=== PATIENT | female | born 1940 | race Caucasian/White ===

== ENCOUNTER 2017-01-25 18:58 | Outpatient (CLI) | payer MEDICARE, OTHER ==
--- NOTE | 2017-01-25 21:07 | Ultrasound Preliminary Report ---
Exam: US Retroperitoneal Limited IMPRESSION: Slightly increased size of large mid to distal abdominal aortic aneurysm. RADIA The call report notification system was initiated by Dr. Kiko Maher at 20:54 hrs on 01/25/17. The above findings were discussed with Dr Joni Ayala by Dr. Kiko Maher at 21:06 hrs on 01/25/17. SITE ID: [id number]
--- NOTE | 2017-01-25 21:10 | Ultrasound Report ---
EXAM: AORTIC DOPPLER ULTRASOUND EXAM DATE: 01/25/2017 08:03 PM. CLINICAL HISTORY: AAA BACK PAIN. COMPARISON: CT scan dated 05/23/2015. TECHNIQUE: Real-time sonographic imaging of retroperitoneal vascular structures, including color-flow , Doppler flow and spectral analysis was performed by the document processor. Multiple front desk representative static images were saved for review. FINDINGS: Aorta: Fusiform infrarenal mid to distal abdominal aortic aneurysm again noted with maximum measureme nt of 5.2 x 5.5 cm and extending over 7.6 cm in length, with asymmetric mural thrombus. This has incr eased from about 4.9 cm in diameter in previous CT scan. Proximal aorta: 2.6 cm. Mid aorta: 3.2 x 3.8 cm. Distal aorta: 5.2 x 5.5 cm. Right iliac artery: 1.4 x 1.4 cm. Left iliac artery: 1.2 x 1.2 cm. Other: None. IMPRESSION: Slightly increased size of large mid to distal abdominal aortic aneurysm. RADIA The call report notification system was initiated by Dr. Kiko Maher at 20:54 hrs on 01/25/17. The above findings were discussed with Dr Joni Ayala by Dr. Kiko Maher at 21:06 hrs on 01/25/17. Referring Provider Line: [phone] SITE ID: [id number]
== END 2017-01-25 18:59 | disposition home or self-care (01) ==
LOC: DI 18:58
PROVIDERS: ATTEND Specialist
DX: I71.4 Abdominal aortic aneurysm, without rupture (principal)
CPT/HCPCS: 76775

== ENCOUNTER 2017-06-29 11:01 | Outpatient (CLI) | payer MEDICARE, OTHER ==
[2017-06-29 11:39] LABS: BASOPHILS % (AUTO) 0.3 %; EOSINOPHILS # (AUTO) 0.1 10^3/uL (0.0-0.7); EOSINOPHILS % (AUTO) 1.8 %; HGB - HEMOGLOBIN 15.3 g/dL (12.0-16.0); LYMPHOCYTES # (AUTO) 2.7 10^3/uL (1.5-3.5); LYMPHOCYTES % (AUTO) 38.5 %; MEAN CORPUSCULAR HEMOGLOBIN 31.9 pg (27.0-31.0); MEAN CORPUSCULAR HGB CONC 33.9 g/dL (32.0-36.0); MEAN CORPUSCULAR VOLUME 94.2 fL (81.0-99.0); MEAN PLATELET VOLUME 9.3 fL (7.9-10.8); MONOCYTES # (AUTO) 0.6 10^3/uL (0.0-1.0); MONOCYTES % (AUTO) 8.6 %; NEUTROPHILS # (AUTO) 3.5 10^3/uL (1.5-6.6); NEUTROPHILS % (AUTO) 50.8 %; PLT - PLATELET COUNT 178 10^3/uL (130-450); RED CELL DISTRIBUTION WIDTH 14.6 % (12.0-15.0)
[2017-06-29] MEDS ORDERED: IOPAMIDOL-300 50 ML VIAL ONE (11:55)
[2017-06-29] MEDS ORDERED: IOPAMIDOL-300 100 ML VIAL ONE (11:55)
[2017-06-29 13:29] LABS: CREATININE 0.8 mg/dL (0.4-1.0)
[2017-06-29] MEDS ORDERED: IOPAMIDOL-300 50 ML VIAL PO ONE (13:54)
[2017-06-29] MEDS ORDERED: IOPAMIDOL-300 100 ML VIAL IVP ONE (13:54)
--- NOTE | 2017-06-29 18:07 | CT Report ---
CT ABDOMEN AND PELVIS WITH CONTRAST: 06/29/2017 CLINICAL INDICATION: Diarrhea, change in bowel habits, foreign body in duodenal diverticulum noted on outside CT 02/20/2017. TECHNIQUE: Axial CT images of the abdomen and pelvis were obtained with 100 mL Isovue 300 intravenously as well as oral contrast. In accordance with CT protocol optimization, one or more of the following dose reduction techniques were utilized for this exam: Automated exposure control, adjustment of mA and/or KV based on patient size, or use of iterative reconstructive technique. COMPARISON: 05/23/2015. The location of the previous outside CT of 02/20/2017 referenced on the order is unknown and it is not available for comparison at this time. FINDINGS: Limited evaluation of the lung bases is unremarkable. ABDOMEN: The liver, spleen, pancreas and adrenal glands are unremarkable. The kidneys demonstrate cortical cysts, left greater than right. The patient is status post cholecystectomy. A duodenal diverticulum is noted. No foreign body is identified within the diverticulum. The diverticulum does abut the cholecystectomy clips, but the clips are external to the diverticulum. Previous aortobiiliac stent grafting is noted. No enhancement of the excluded aneurysm lumen is appreciated on this single phase examination. No bowel dilatation, free gas, or free fluid is seen. No abdominal adenopathy is appreciated. PELVIS: The pelvic organs appear unremarkable. No pelvic adenopathy or free fluid is present. Osseous structures demonstrate degenerative changes. IMPRESSION: NO EVIDENT ETIOLOGY FOR PATIENT'S DIARRHEA AND CHANGE IN BOWEL HABITS. NO FOREIGN BODY VISUALIZED IN THE DUODENAL DIVERTICULUM. PREVIOUS AORTOBIILIAC STENT GRAFTING. TD: 06/29/2017 18:06
[2017-07-03 16:42] LABS: ENDOMYSIAL ANTIBODY SCR IGA NEGATIVE (NEGATIVE); GLIADIN (DEAMIDATED) AB IGA 13 U (<20); GLIADIN (DEAMIDATED) AB IGG 3 U (<20); IMMUNOGLOBULIN A 362 mg/dL (81-463); TISSUE TRANSGLUTAMINASE IGA <1 U/mL; TISSUE TRANSGLUTAMINASE IGG 2 U/mL
== END 2017-06-29 11:02 | disposition home or self-care (01) ==
LOC: LAB 11:01 → DI 11:02
PROVIDERS: ATTEND Nurse Anesthetist, Certified Registered
DX: R19.7 Diarrhea, unspecified (principal); R19.4 Change in bowel habit; K59.09 Other constipation
CPT/HCPCS: 36415; 74177; 82565; 82784; 83516; 85025; 86256; Q9967

== ENCOUNTER 2017-09-22 10:31 | Outpatient (CLI) | payer MEDICARE, OTHER ==
--- NOTE | 2017-09-24 14:31 | DEXA Report ---
DEXA SCAN: 09/22/2017 CLINICAL INDICATION: Postmenopausal. TECHNIQUE: Dual energy x-ray absorptiometry (DXA) was performed on a [employer] system. Regions measured are the AP spine, femoral neck, and, if needed, forearm. COMPARISON: None. In accordance with the International Society for Clinical Densitometry (ISCD) guidelines, data from previous exams may be reanalyzed using current recommendations and techniques. This is done to allow a more accurate basis for comparison with the current study. FINDINGS Data for the lumbar spine is as follows: N/A Data for the RIGHT hip is as follows: REGION BMD (g/cm/cm) T-SCORE Z-SCORE Neck 0.795 -1.7 -0.1 TOTAL 0.921 -0.7 0.8 NOTE: The femoral neck or total proximal femur, whichever is lowest, is used for classification. The data for the LEFT forearm is as follows: REGION BMD (g/cm/cm) T-SCORE Z-SCORE 1/3 0.847 -0.3 2.1 NOTE: The 33% radius of the nondominant forearm is used for classification. IMPRESSION 1. WHO CLASSIFICATION BASED ON THE INTERNATIONAL REFERENCE STANDARD IS OSTEOPENIA. FRACTURE RISK IS INCREASED. 2. LUMBAR SPINE NOT PERFORMED DUE TO AORTIC STENT GRAFT IN PLACE; LEFT HIP NOT PERFORMED DUE TO HISTORY OF FRACTURE. RECOMMENDATION: Patients with diagnosis of osteoporosis or osteopenia should have regular bone mineral density assessment. For those eligible for Medicare, routine testing is allowed once every 2 years. Testing frequency can be increased for patients who have rapidly progressing disease or for those who are receiving medical therapy to restore bone mass. COMMENT World Health Organization (WHO) definitions for osteoporosis and osteopenia: NORMAL BMD: T-score at 1.0 or higher, fracture risk is low. OSTEOPENIA BMD: T-score between 1.0 and -2.5, fracture risk is increased. OSTEOPOROSIS BMD: T-score at 2.5 or lower, fracture risk high. National Osteoporosis Foundation recommends: 1. Obtain adequate dietary calcium (at least 1200 mg per day) and vitamin D ( 400-800 international units per day). 2. Participate, as appropriate, in regular weightbearing and muscle- strengthening exercise. 3. Avoid tobacco use and reduce alcohol and caffeine intake. 4. For more detailed information see the website at www.NOF.org. REVISED: REPORT ORIG. SIGNED ON 09/25/2017@0420; ORDERS LINKED ON 11/06/2017 jll TD: 09/22/2017 13:10 MTDD
== END 2017-09-22 10:32 | disposition home or self-care (01) ==
LOC: DI 10:31
PROVIDERS: ATTEND Specialist
DX: Z13.820 Encounter for screening for osteoporosis (principal); Z78.0 Asymptomatic menopausal state; M85.89 Other specified disorders of bone density and structure, multiple sites
CPT/HCPCS: 77080; 77081

== ENCOUNTER 2017-09-22 10:32 | Outpatient (CLI) | payer MEDICARE, OTHER ==
--- NOTE | 2017-09-25 18:13 | Mammography Report ---
BILATERAL DIGITAL SCREENING MAMMOGRAPHY: 09/22/2017 TECHNIQUE: Routine CC and MLO projections were obtained of the breasts. COMPARISONS: NONE FINDINGS: There are scattered fibroglandular densities. There are focal areas of asymmetry bilaterally, on the right in the anterior upper outer quadrant and on the left in the 12 o'clock position, mid and posterior thirds. Further evaluation by spot compression and true lateral views suggested. Depending on these, ultrasound may be useful. Scattered calcifications are seen in each breast. The more anterior asymmetric density seen in the left breast may have associated microcalcifications. No definite architectural distortion or skin thickening in either breast. IMPRESSION: NEEDS ADDITIONAL EVALUATION BILATERAL BREASTS BY SPOT COMPRESSION AND/OR MAGNIFICATION VIEWS. ULTRASOUND MAY ALSO BE INDICATED. BIRADS CATEGORY: 0, INCOMPLETE. IF PRIOR IMAGING CAN BE OBTAINED, THE NEED FOR ADDITIONAL IMAGING MAY BE OBVIATED. STANDARD QUALIFYING STATEMENTS 1. This examination was reviewed with the aid of Computed-Aided Detection (CAD) . 2. A negative or benign imaging report should not delay biopsy if clinically suspicious findings are present. Consider surgical consultation if warranted. More than 5 % of cancers are not identified by imaging. 3. Dense breasts may obscure an underlying neoplasm. TD: 09/25/2017 16:10 [place]
== END 2017-09-22 10:33 | disposition home or self-care (01) ==
LOC: DI 10:32
PROVIDERS: ATTEND Specialist
DX: Z12.31 Encounter for screening mammogram for malignant neoplasm of breast (principal)
CPT/HCPCS: 77067

== ENCOUNTER 2017-10-16 14:29 | Outpatient (CLI) | END 2017-10-16 14:30 | disposition home or self-care (01) ==

== ENCOUNTER 2017-10-30 10:23 | Outpatient (CLI) | payer MEDICARE, OTHER ==
[2017-10-30] MEDS ORDERED: BUFFERED LIDOCAINE 10 ML SYRINGE IU ONE (13:52)
[2017-10-30] MEDS ORDERED: BUPIVACAINE 0.5%-EPI 1:200000 PF 10 ML VIAL SUBQ ONE (13:52)
--- NOTE | 2017-10-30 14:15 | Ultrasound Report ---
Procedure Date: 10/30/2017 Accession Number: [id number] / [id number] Procedure: US - Biopsy Breast Core CPT Code: FULL RESULT: EXAM: Biopsy Breast Core, Biopsy Breast Ea Addl Core DATE: 10/30/2017 12:32 PM CLINICAL HISTORY: ABN MAMMO - LT BREAST NODULES Informed consent was obtained. Initially, the 12:00 6 cm from the nipple nodule was targeted. Using standard aseptic technique, both 1% buffered lidocaine and Sensorcaine were injected into the left breast for local anesthesia. A small ksenia was made in the skin with a #11 blade. A 12-gauge Celero vacuum-assisted device was used to obtain 3 specimens. A Celero marker was placed into the biopsy cavity under ultrasound guidance. Subsequently, the 1:00 2 cm from the nipple nodule was targeted. Through the same dermatotomy, both 1% buffered lidocaine and Sensorcaine were injected for local anesthesia. A 12-gauge Celero vacuum-assisted device was used to obtain 4 specimens. A Celero marker was placed into the biopsy cavity under ultrasound guidance. The patient was taken to a separate mammography machine, and a 2 view digital mammogram was performed, documenting the markers in the expected locations and no significant postbiopsy hematoma. The wound was dressed and ice applied. The patient was observed for approximately 15 minutes, that was discharged from diagnostic imaging in good condition following instructions on wound care and obtaining biopsy results. The tissue was sent for histologic analysis. IMPRESSION: Ultrasound-guided biopsy of 2 left breast nodules. An addendum will be made to this report when pathology is reviewed to establish concordance.
--- NOTE | 2017-10-30 14:15 | Ultrasound Report ---
Procedure Date: 10/30/2017 Accession Number: [id number] / [id number] Procedure: US - Biopsy Breast Ea Addl Core CPT Code: 66969 FULL RESULT: EXAM: Biopsy Breast Core, Biopsy Breast Ea Addl Core DATE: 10/30/2017 12:32 PM CLINICAL HISTORY: ABN MAMMO - LT BREAST NODULES Informed consent was obtained. Initially, the 12:00 6 cm from the nipple nodule was targeted. Using standard aseptic technique, both 1% buffered lidocaine and Sensorcaine were injected into the left breast for local anesthesia. A small ksenia was made in the skin with a #11 blade. A 12-gauge Celero vacuum-assisted device was used to obtain 3 specimens. A Celero marker was placed into the biopsy cavity under ultrasound guidance. Subsequently, the 1:00 2 cm from the nipple nodule was targeted. Through the same dermatotomy, both 1% buffered lidocaine and Sensorcaine were injected for local anesthesia. A 12-gauge Celero vacuum-assisted device was used to obtain 4 specimens. A Celero marker was placed into the biopsy cavity under ultrasound guidance. The patient was taken to a separate mammography machine, and a 2 view digital mammogram was performed, documenting the markers in the expected locations and no significant postbiopsy hematoma. The wound was dressed and ice applied. The patient was observed for approximately 15 minutes, that was discharged from diagnostic imaging in good condition following instructions on wound care and obtaining biopsy results. The tissue was sent for histologic analysis. IMPRESSION: Ultrasound-guided biopsy of 2 left breast nodules. An addendum will be made to this report when pathology is reviewed to establish concordance.
--- NOTE | 2017-10-30 14:22 | Mammography Report ---
Procedure Date: 10/30/2017 Accession Number: [id number] / [id number] Procedure: CAROLYNN - Diagnostic Dig LT CPT Code: FULL RESULT: EXAM: Diagnostic Dig LT DATE: 10/30/2017 12:31 PM CLINICAL HISTORY: Status post 2 sites left breast core needle biopsies TECHNIQUE: Left CC and ML views Please refer to biopsy dictation of the same day.
== END 2017-10-30 10:24 | disposition home or self-care (01) ==
LOC: DI 10:23
PROVIDERS: ATTEND Specialist
DX: R92.8 Other abnormal and inconclusive findings on diagnostic imaging of breast (principal); D24.2 Benign neoplasm of left breast
CPT/HCPCS: 19083; 19084

== ENCOUNTER 2018-07-03 13:20 | Outpatient (CLI) | payer MEDICARE, OTHER ==
--- NOTE | 2018-07-03 15:59 | Mammography Report ---
Reason: 6 MO F/U - LEFT BREAST NODULES Procedure Date: 07/03/2018 Accession Number: [id number] / [id number] Procedure: CAROLYNN - Diagnostic Dig LT CPT Code: FULL RESULT: EXAM: Diagnostic Dig LT DATE: 07/03/2018 1:43 PM CLINICAL HISTORY: 9 month follow-up to side benign concordant biopsy left breast. No reported personal or family history of breast cancer. TECHNIQUE: Left CC, exaggerated CC MLO and 90 degree lateral views obtained with 2-D and 3-D technique. Real-time ultrasound of the left breast is also performed. COMPARISON: 10/30/2017 through 09/22/2017 FINDINGS: The breasts demonstrate heterogeneously dense fibroglandular parenchyma bilaterally. Left breast: There is a stable, low-density, oval 17 mm mass with circumscribed margins in the 12:00 breast 6 cm from the nipple; there is a biopsy marker 13 mm anterior to the mass. Previous histology returned pseudoangiomatous stromal hyperplasia, which was benign concordant. There is a 10 mm oval mass with faint peripheral calcifications in the 1:00 breast 3 cm from the nipple representing a second benign concordant biopsy site. Biopsy clip is associated with the mass and histology return foreign body granulomatous reaction. There are no suspicious calcifications or areas of distortion. Real-time ultrasound demonstrates stable sonographic appearance of a oval, circumscribed, parallel orientation hypoechoic avascular mass at 1:00 anterior with posterior acoustic shadowing representing benign concordant biopsy site of foreign body granulomatous change. 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 IMPRESSION: Left breast: Stable appearance of 2 sites of benign concordant biopsy as described. Benign. BI-RADS Category 2. Recommend return to annual screening mammography with next bilateral exam due in September or October 2018. BI-RADS CATEGORY 2: Benign findings STANDARD QUALIFYING STATEMENTS: 1. This examination was not reviewed with the aid of Computer-Aided Detection (CAD). 2. A negative or benign imaging report should not preclude biopsy if clinically suspicious findings are present. 3. Dense breasts may obscure an underlying neoplasm. 4. This examination was reviewed with the aid of 3D breast imaging (tomosynthesis).
== END 2018-07-03 13:21 | disposition home or self-care (01) ==
LOC: DI 13:20
PROVIDERS: ATTEND Specialist
DX: N63.21 Unspecified lump in the left breast, upper outer quadrant (principal)
CPT/HCPCS: 76642

== ENCOUNTER 2018-10-04 19:21 | Emergency (ER) | payer MEDICARE, OTHER ==
[2018-10-04 19:28] VITALS: BP 163/79
--- NOTE | 2018-10-04 20:15 | ED Physician Documentation ---
PD HPI MAJOR TRAUMA - Stated complaint Stated Complaint: FACIAL,R HAND INJURY - Chief complaint Chief Complaint: Trauma Ext - History obtained from History obtained from: Patient - History of Present Illness Mechanism of injury: Fell (walking the dog and the dog dragged her forward. she landed on her face and chest wall and right hand) Where injury occurred: Street Timing - onset: Today (just prior to arrival) Injury(ies) location: Face (nose bleed), Chest (right chest wall), Right Upper Extremity (right hand knucles and fingers) Pain level max: 3 Pain level now: 3 Severity Comments: moderate Quality of pain: Pain, Aching Associated symptoms: Nasal drainage (left nostril nose bleed). No: LOC, AMS, Amnesia, Seizures, Ear drainage, Neck pain, Weakness, Paresthesias, Dyspnea, Nausea / vomiting, Hematemesis, Abdominal distension Symptoms improve with: Nothing Worsens with: Palpation Contributing factors: No: Anticoagulated, Intoxicated Similar symptoms before: Has not had sx before Recently seen: Not recently seen Review of Systems Ten Systems: 10 systems reviewed and negative Constitutional: denies: Fever, Chills Eyes: denies: Decreased vision Ears: denies: Drainage/discharge Nose: reports: Epistaxis Throat: denies: Dental pain / toothache Cardiac: reports: Chest pain / pressure. denies: Palpitations Respiratory: denies: Dyspnea GI: denies: Abdominal Pain, Nausea, Vomiting Skin: reports: Abrasion (s) (to nose) Musculoskeletal: reports: Extremity pain. denies: Neck pain, Back pain, Joint pain, Extremity swelling Neurologic: denies: Focal weakness, Numbness, Near syncope, Syncope, Headache, LOC PD PAST MEDICAL HISTORY - Past Medical History Past Medical History: Yes Cardiovascular: High cholesterol Respiratory: None, Shortness of breath Endocrine/Autoimmune: HyPOthyroidism GI: Diverticulitis FOREIGN CLERK: None : Incontinence HEENT: Chronic vision loss, Chronic hearing loss Psych: None Musculoskeletal: Osteoarthritis, Osteoporosis, Chronic back pain Derm: Psoriasis - Past Surgical History Past Surgical History: Yes General: Cholecystectomy Ortho: Other /FOREIGN CLERK: Tubal ligation Cardiovascular: AAA - Present Medications Home Medications: Ambulatory Orders Medication Instructions Recorded Confirmed Cetirizine [ZyrTEC] 1 tab PO DAILY 02/15/15 02/15/15 Ibandronate Sodium [Boniva] 02/15/15 02/15/15 Levothyroxine [Synthroid] 1 tab PO DAILY 02/15/15 02/15/15 Simvastatin 1 tab PO DAILY 02/15/15 02/15/15 Aspirin Chewable [St Jw 81 mg ORAL DAILY 10/04/18 10/04/18 Aspirin] Budesonide/Formoterol Fumarate 10.2 gm IH BID PRN 10/04/18 10/04/18 [Symbicort 160-4.5 Mcg Inhaler] Calcium Carbonate 100 mg PO DAILY 10/04/18 10/04/18 Cyanocobalamin (Vitamin B-12) 1,000 mcg PO 10/04/18 [Vitamin B-12] Ustekinumab [Stelara] 45 mg SUBQ ONCE 10/04/18 10/04/18 traMADol [Ultram] 50 mg PO Q4-6H #20 tablet 10/04/18 - Allergies Allergies/Adverse Reactions: Allergies Allergy/AdvReac Type Severity Reaction Status Date / Time erythromycin base Allergy Unknown Verified 10/04/18 19:25 - Social History Does the pt smoke?: No Smoking Status: Never smoker Does the pt drink ETOH?: No Does the pt have substance abuse?: No - Immunizations Immunizations are current?: Yes - POLST Patient has POLST: No PD ED PE NORMAL - Vitals Vital signs reviewed: Yes - General General: Alert and oriented X 3, No acute distress, Well developed/nourished - HEENT HEENT: Atraumatic, PERRL, EOMI, Ears normal, Moist mucous membranes, Pharynx benign, Dentition benign - Neck Neck: Supple, no meningeal sign, No JVD - Cardiac Cardiac: RRR, No murmur, No gallop, No rub, Strong equal pulses - Respiratory Respiratory: No respiratory distress, Clear bilaterally - Abdomen Abdomen: Soft, Non tender, Non distended - Female Female : Deferred - Rectal Rectal: Deferred - Derm Derm: Normal color, Warm and dry, No rash, Other (nasal bridge abrasion mild ) - Extremities Extremities: No deformity, Normal ROM s pain, No edema - Neuro Neuro: Alert and oriented X 3, No motor deficit, No sensory deficit, Normal speech Eye Opening: Spontaneous Motor: Obeys Commands Verbal: Oriented GCS Score: 15 - Psych Psych: Normal mood, Normal affect PD ED PE EXPANDED - HEENT HEENT: EOMI, Ears normal, Left nares epistaxis (mild, clotted), Moist mucous membranes, Pharynx normal, Other (no nasal crepitus or deformity ). No: R TM red, R TM dull, R TM bulging, L TM red, L TM dull, L TM bulging, Dental trauma - Cardiac Cardiac: Chest wall TTP (right anterior chest wall, no crepitus) Results - Vitals Vitals: Vital Signs - 24 hr 10/04/18 19:24 Temperature 37.0 C Heart Rate 79 Respiratory 18 Rate Blood Pressure 163/79 H O2 Saturation 99 Oxygen O2 Source Room air - Rads (name of study) No standard instances Radiology: Final report received (no acute hand fx or dislocation ) chest xray Radiology: Final report received (negative) PD MEDICAL DECISION MAKING - ED course Complexity details: reviewed results, re-evaluated patient, considered differential, d/w patient ED course: ddx- fracture, dislocation, chest wall contusion, rib fracture, pneumothorax, hand contusion, epistaxis, nasal bone fracture 78 y/o F with minor trauma from a fall tonight. R hand pain, R chest wall pain and epistaxis of L nostril with no other injuries. No LOC. Pt not on blood thinners. Xrays here of chest, hand, were neg. Pt has no significant nasal bleeding. No septal hematoma. She is stable for discharge w/supportive care. Departure - Departure Disposition: ED Transfer to [facility] Clinical Impression: Epistaxis due to trauma Hand contusion Qualifiers: Encounter type: initial encounter Laterality: right Qualified Code(s): S60.221A - Contusion of right hand, initial encounter Chest wall contusion Qualifiers: Encounter type: initial encounter Laterality: right Qualified Code(s): S20.211A - Contusion of right front wall of thorax, initial encounter Condition: Stable Record reviewed to determine appropriate education?: Yes Instructions: ED Contusion Chest Wall, ED Contusion Rib Follow-Up: ROSALINO ARELLANO [Primary Care Provider] - Prescriptions: traMADol [Ultram] 50 mg PO Q4-6H #20 tablet Comments: You were evaluated in the ED today for a fall. You had a mild nose bleed which resolved and a Right hand contusion and right chest wall contusion. No fractures were seen on your xrays. This will likely hurt for a few days. you can take tramadol as needed for pain. You can follow up with your doctor if your symptoms persist. Return to the ED if you develop shortness of breath.
--- NOTE | 2018-10-04 20:31 | XRAY Report ---
Reason: GLF on outstretched hand, pain Procedure Date: 10/04/2018 Accession Number: [id number] / [id number] Procedure: XR - Hand 3 View RT CPT Code: FULL RESULT: EXAM: RIGHT HAND RADIOGRAPHY EXAM DATE: 10/04/2018 07:56 PM. CLINICAL HISTORY: Ground-level fall on outstretched hand, hand pain. COMPARISON: None. TECHNIQUE: 3 views. FINDINGS: Bones: Normal. No fractures or bone lesions. Joints: Severe first CMC and second DIP joint osteoarthritis present. There is more moderate disease about the remaining distal interphalangeal joints, first IP joint and first MCP joint. The STT joint is also mildly narrowed. Soft Tissues: Normal. No soft tissue swelling. IMPRESSION: 1. No acute fracture or dislocation. 2. Osteoarthritis as described. RADIA
--- NOTE | 2018-10-04 20:34 | XRAY Report ---
Reason: chest pain Procedure Date: 10/04/2018 Accession Number: [id number] / [id number] Procedure: XR - Chest 1 View X-Ray CPT Code: 50526 FULL RESULT: EXAM: CHEST RADIOGRAPHY EXAM DATE: 10/04/2018 08:11 PM. CLINICAL HISTORY: Chest pain. COMPARISON: None. TECHNIQUE: 1 view. FINDINGS: Lungs/Pleura: No focal opacities evident. No pleural effusion. No pneumothorax. Mediastinum: Within exam limitations, the cardiomediastinal contour is normal. Other: None. IMPRESSION: Normal single view chest. RADIA
[2018-10-04] MEDS ORDERED: traMADol 50 MG TABLET PO STA (20:40)
== END 2018-10-04 20:49 | disposition home or self-care (01) ==
LOC: ED 19:21
DX: S60.221A Contusion of right hand, initial encounter (principal); S20.211A Contusion of right front wall of thorax, initial encounter; S00.31XA Abrasion of nose, initial encounter; R04.0 Epistaxis; W54.8XXA Other contact with dog, initial encounter; Y93.K1 Activity, walking an animal; Y92.410 Unspecified street and highway as the place of occurrence of the external cause; Z79.82 Long term (current) use of aspirin
CPT/HCPCS: 71045; 73130; 99283; A9270

== ENCOUNTER 2019-12-30 18:27 | Emergency (ER) | payer MEDICARE, OTHER ==
[2019-12-30 19:24] LABS: BASOPHILS % (AUTO) 0.4 %; EOSINOPHILS # (AUTO) 0.1 10^3/uL (0.0-0.7); EOSINOPHILS % (AUTO) 1.2 %; HGB - HEMOGLOBIN 16.8 g/dL (12.0-16.0); LYMPHOCYTES # (AUTO) 2.1 10^3/uL (1.5-3.5); LYMPHOCYTES % (AUTO) 20.4 %; MEAN CORPUSCULAR HEMOGLOBIN 33.7 pg (27.0-31.0); MEAN CORPUSCULAR HGB CONC 34.2 g/dL (32.0-36.0); MEAN CORPUSCULAR VOLUME 98.6 fL (81.0-99.0); MEAN PLATELET VOLUME 11.7 fL (7.9-10.8); MONOCYTES # (AUTO) 0.6 10^3/uL (0.0-1.0); MONOCYTES % (AUTO) 5.6 %; NEUTROPHILS # (AUTO) 7.4 10^3/uL (1.5-6.6); PLT - PLATELET COUNT 201 10^3/uL (130-450); RED BLOOD COUNT 4.98 10^6/uL (4.20-5.40); RED CELL DISTRIBUTION WIDTH 13.2 % (12.0-15.0); WHITE BLOOD COUNT 10.3 x10^3/uL (4.8-10.8)
[2019-12-30 19:37] LABS: ALBUMIN 4.5 g/dL (3.2-5.5); ALBUMIN/GLOBULIN RATIO 1.3 (1.0-2.2); BILIRUBIN,TOTAL 0.7 mg/dL (0.2-1.0); CREATININE 0.8 mg/dL (0.4-1.0); TOTAL PROTEIN 7.9 g/dL (6.7-8.2)
--- NOTE | 2019-12-30 19:37 | ED Physician Documentation ---
PD HPI ABD PAIN - Stated complaint Stated Complaint: LT SIDE PX - Chief complaint Chief Complaint: Abd Pain - History obtained from History obtained from: Patient - History of Present Illness Timing - onset: How many days ago (2) Timing - duration: Days (2) Timing - details: Gradual onset Pain level max: 8 Pain level now: 6 Quality: Aching, Pain Location: LLQ Radiation: No: Chest, , Lower back, Left flank, Left shoulder, Right flank, Right shoulder, Upper back Improved by: Laying still Worsened by: Moving, Palpation Associated symptoms: Nausea, Diarrhea (chronic, unchanged.). No: Fever, Vomiting, Hematemesis, Melena, Hematochezia, Dysuria, Hematuria, Chest pain Similar symptoms before: Diagnosis (has had diverticulitis.) Recently seen: Not recently seen Review of Systems Ten Systems: 10 systems reviewed and negative Constitutional: denies: Fever, Chills Respiratory: denies: Cough GI: denies: Vomiting, Hematemesis, Bloody / black stool : denies: Dysuria Skin: denies: Rash Musculoskeletal: denies: Neck pain, Back pain Neurologic: denies: Headache PD PAST MEDICAL HISTORY - Past Medical History Cardiovascular: High cholesterol Respiratory: Shortness of breath Neuro: Migraines Endocrine/Autoimmune: HyPOthyroidism GI: Diverticulitis CNA GNA: None : Incontinence HEENT: Chronic vision loss, Chronic hearing loss Psych: None Musculoskeletal: Osteoarthritis, Osteoporosis, Chronic back pain Derm: Psoriasis - Past Surgical History Past Surgical History: Yes General: Cholecystectomy Ortho: Other /CNA GNA: Tubal ligation Cardiovascular: AAA - Present Medications Home Medications: Ambulatory Orders Medication Instructions Recorded Confirmed Cetirizine [ZyrTEC] 1 tab PO DAILY 02/15/15 02/15/15 Ibandronate Sodium [Boniva] 02/15/15 02/15/15 Levothyroxine [Synthroid] 1 tab PO DAILY 02/15/15 02/15/15 Simvastatin 1 tab PO DAILY 02/15/15 02/15/15 Aspirin Chewable [St Jw 81 mg ORAL DAILY 10/04/18 10/04/18 Aspirin] Budesonide/Formoterol Fumarate 10.2 gm IH BID PRN 10/04/18 10/04/18 [Symbicort 160-4.5 Mcg Inhaler] Calcium Carbonate 100 mg PO DAILY 10/04/18 10/04/18 Cyanocobalamin (Vitamin B-12) 1,000 mcg PO 10/04/18 [Vitamin B-12] Ustekinumab [Stelara] 45 mg SUBQ ONCE 10/04/18 10/04/18 traMADol [Ultram] 50 mg PO Q4-6H #20 tablet 10/04/18 Amox/Clav 875/125 [Augmentin] 1 tab PO Q8H #30 tablet 12/30/19 - Allergies Allergies/Adverse Reactions: Allergies Allergy/AdvReac Type Severity Reaction Status Date / Time erythromycin base Allergy Unknown Verified 10/04/18 19:25 - Social History Does the pt smoke?: No Smoking Status: Never smoker Does the pt drink ETOH?: Yes ETOH Use: Wine Does the pt have substance abuse?: No - Immunizations Immunizations are current?: Yes - POLST Patient has POLST: No PD ED PE NORMAL - Vitals Vital signs reviewed: Yes - General General: Alert and oriented X 3, No acute distress, Well developed/nourished - HEENT HEENT: PERRL, Moist mucous membranes - Neck Neck: Supple, no meningeal sign - Cardiac Cardiac: RRR, Strong equal pulses - Respiratory Respiratory: No respiratory distress, Clear bilaterally - Abdomen Abdomen: Soft, Non distended, Other (Tender to palpation left lower quadrant without peritoneal signs) - Derm Derm: Warm and dry - Extremities Extremities: No deformity - Neuro Neuro: Alert and oriented X 3 - Psych Psych: Normal mood, Normal affect Results - Vitals Vitals: Vital Signs - 24 hr 12/30/19 12/30/19 12/30/19 18:34 18:57 20:16 Temperature 36.1 C L 98.1 C H 36.7 C Heart Rate 97 97 90 Respiratory 16 18 16 Rate Blood Pressure 128/103 H 162/78 H 119/75 O2 Saturation 99 95 91 L 12/30/19 21:37 Temperature 36.6 C Heart Rate 88 Respiratory 19 Rate Blood Pressure 127/68 O2 Saturation 94 Oxygen O2 Source Room air - Labs Labs: Laboratory Tests 12/30/19 12/30/19 12/30/19 19:10 19:10 21:37 WBC 10.3 RBC 4.98 Hgb 16.8 H Hct 49.1 H MCV 98.6 MCH 33.7 H MCHC 34.2 RDW 13.2 Plt Count 201 MPV 11.7 H Neut # (Auto) 7.4 H Lymph # (Auto) 2.1 [place] # (Auto) 0.6 Eos # (Auto) 0.1 Baso # (Auto) 0.0 Absolute Nucleated RBC 0.00 Nucleated RBC % 0.0 Sodium 139 Potassium 3.7 Chloride 97 L Carbon Dioxide 29 Anion Gap 13.0 BUN 16 Creatinine 0.8 Estimated GFR (MDRD) 69 L Glucose 162 H Calcium 11.0 H Total Bilirubin 0.7 AST 21 ALT 17 Alkaline Phosphatase 51 Total Protein 7.9 Albumin 4.5 Globulin 3.4 Albumin/Globulin Ratio 1.3 Lipase 33 Urine Color YELLOW Urine Clarity CLEAR Urine pH 7.0 Ur Specific [place] <=1.005 Urine Protein NEGATIVE Urine Glucose (UA) NEGATIVE Urine Ketones NEGATIVE Urine Occult Blood TRACE-INTA Urine Nitrite NEGATIVE Urine Bilirubin NEGATIVE Urine Urobilinogen 0.2 (NORMAL) Ur Leukocyte Esterase NEGATIVE Ur Microscopic Review NOT INDICATED Urine Culture Comments NOT INDICATED - Rads (name of study) CT abdomen pelvis Radiology: Prelim report reviewed, EMP read contemporaneously, See rad report PD MEDICAL DECISION MAKING - ED course Complexity details: reviewed results, re-evaluated patient, considered differential, d/w patient ED course: CT abdomen pelvis was read as normal, however on my read she appears to have inflammation and thickening of the sigmoid colon. We will treat her as diverticulitis. Patient is well-appearing, nontoxic. Afebrile. Tolerating p.o. without difficulty. Pain well controlled. Patient counseled regarding signs and symptoms for which I believe and urgent re-evaluation would be necessary. Patient with good understanding of and agreement to plan and is comfortable going home at this time This document was made in part using voice recognition software. While efforts are made to proofread this document, sound alike and grammatical errors may occur. Departure - Departure Disposition: 01 Home, Self Care Clinical Impression: Diverticulitis Condition: Good Instructions: ED Diverticulitis Follow-Up: Thony Edwards MD [Primary Care Provider] - Within 1 week Prescriptions: Amox/Clav 875/125 [Augmentin] 1 tab PO Q8H #30 tablet Comments: Take all antibiotics until gone. Return if you worsen. Follow-up with your d octor for repeat evaluation within 1 week. Discharge Date/Time: 12/30/19 21:43
[2019-12-30] MEDS ORDERED: MORPHINE 2 MG/ML CARPUJECT IVP STA (19:51)
[2019-12-30] MEDS ORDERED: IOVERSOL 320 100 ML VIAL IVP ONE ×2 (20:13→20:44)
--- NOTE | 2019-12-30 21:10 | CT Report ---
PROCEDURE: Abdomen/Pelvis W INDICATIONS: LLQ pain, possible diverticulitis? CONTRAST: IV CONTRAST: Optiray 320 ml: 100 PO CONTRAST: *NO PO CONTRAST TECHNIQUE: After the administration of nonionic contrast, 5 mm thick sections acquired from the diaphragms to th e symphysis. 5 mm thick coronal and sagittal reformats were acquired. For radiation dose reduction, the following was used: automated exposure control, adjustment of mA and/or kV according to patient size. COMPARISON: Prior similar CT 06/29/2017. FINDINGS: Image quality: Excellent. ABDOMEN: Lung bases: Lung bases are clear. Heart size is normal. Solid organs: Liver and spleen are normal in size and enhancement. Gallbladder has been previously resected Biliary system is non dilated. Pancreas enhances normally. No adrenal nodules. Kidneys d emonstrate normal size and enhancement, without hydronephrosis. There is a water density simple appe aring exophytic left lower renal cortical cyst, measuring up to 5.8 cm in maximal dimension. Peritoneum and bowel: Bowel loops demonstrate normal wall thickness and caliber. No free fluid or a ir. Nodes and vessels: No retroperitoneal or mesenteric adenopathy by size criteria. Inferior vena cava is normal in size. There is aneurysmal dilatation of the [place] aorta, which has been treated with a normal caliber intraluminal end of stent, encased within the [place] aorta, with no sign of indistinc tly. The [place] aorta caliber measures up to 5.2 x 5.5 cm, with thrombosis of the interface between t he and distended outer margin in the [place] aortic aneurysm inner margin. The endostent branches into right and left common iliac artery equivalent limbs, communicating to the [place] common iliac arteri es bilaterally. Patent flow through the [place] external iliac arteries and within the [place] internal iliac arteries is present. Miscellaneous: No ventral hernias. PELVIS: Genitourinary: Bladder wall thickness is normal. Miscellaneous: No inguinal hernias or adenopathy. No diverticulitis is found. Bones: No suspicious bony lesions. No vertebral body compression fractures. IMPRESSION: 1. Source of acute left lower quadrant pain is not found. Note is made of a previously present patent aortic aneurysm treatment Endo stent with patent bilateral iliac artery equivalent limbs and patent flow through the [place] vessels of the pelvis and of the common femoral arteries bilaterally. 2. Note is made of prior cholecystectomy, and a moderately large exophytic left lower renal cortical cyst showing no sign of inflammation. No hydronephrosis or nephrolithiasis is found. Reviewed by: Segundo Resendiz MD on 12/30/2019 9:09 PM PDT Approved by: Segundo Resendiz MD on 12/30/2019 9:09 PM PDT Station ID: [id number]
[2019-12-30] MEDS ORDERED: AMOX/CLAV 875 MG/125 MG TABLET PO STA (21:34)
[2019-12-30 21:38] VITALS: BP 127/68
[2019-12-30 21:43] LABS: BILIRUBIN,URINE NEGATIVE (NEGATIVE); CLARITY,URINE CLEAR (CLEAR); GLUCOSE, URINE (UA) NEGATIVE (NEGATIVE); KETONES,URINE (UA) NEGATIVE (NEGATIVE); LEUKOCYTE ESTERASE, URINE NEGATIVE (NEGATIVE); NITRITE,URINE NEGATIVE (NEGATIVE); OCCULT BLOOD,URINE TRACE-INTA (NEGATIVE); PROTEIN,URINE NEGATIVE (NEGATIVE); UROBILINOGEN,URINE 0.2 (NORMAL) E.U./dL (NORMAL)
== END 2019-12-30 21:43 | disposition home or self-care (01) ==
LOC: ED 18:27
DX: K57.32 Diverticulitis of large intestine without perforation or abscess without bleeding (principal)
CPT/HCPCS: 36415; 74177; 80053; 81003; 83690; 85025; 96374; 99284; A9270; Q9967; 81001; 87086

== ENCOUNTER 2020-01-14 14:55 | Outpatient (CLI) | payer MEDICARE, OTHER ==
--- NOTE | 2020-01-14 16:42 | XRAY Report ---
PROCEDURE: Knee 3 View RT INDICATIONS: RT KNEE PAIN TECHNIQUE: 3 views of the right knee(s) were acquired. COMPARISON: None. FINDINGS: Bones: No fractures or dislocations. No suspicious bony lesions. Moderate medial and mild to moder ate patellofemoral compartment narrowing. No erosions. Soft tissues: Mild joint effusion. No suspicious soft tissue calcifications. IMPRESSION: Mild effusion with medial patellofemoral compartment narrowing suggestive osteoarthritis . Reviewed by: Mireille Coelho MD on 01/14/2020 4:41 PM PDT Approved by: Mireille Coelho MD on 01/14/2020 4:41 PM PDT Station ID: [id number]
== END 2020-01-14 14:56 | disposition home or self-care (01) ==
LOC: DI 14:55
PROVIDERS: ATTEND Internal Medicine
DX: M25.561 Pain in right knee (principal); M25.461 Effusion, right knee

== ENCOUNTER 2020-07-21 18:45 | Emergency (ER) | payer MEDICARE, OTHER ==
[2020-07-21 19:16] LABS: BASOPHILS % (AUTO) 0.4 %; EOSINOPHILS # (AUTO) 0.2 10^3/uL (0.0-0.7); EOSINOPHILS % (AUTO) 2.1 %; HCT - HEMATOCRIT 47.1 % (37.0-47.0); HGB - HEMOGLOBIN 15.5 g/dL (12.0-16.0); LYMPHOCYTES # (AUTO) 2.7 10^3/uL (1.5-3.5); LYMPHOCYTES % (AUTO) 38.4 %; MEAN CORPUSCULAR HEMOGLOBIN 32.8 pg (27.0-31.0); MEAN CORPUSCULAR HGB CONC 32.9 g/dL (32.0-36.0); MEAN CORPUSCULAR VOLUME 99.6 fL (81.0-99.0); MEAN PLATELET VOLUME 11.5 fL (7.9-10.8); MONOCYTES # (AUTO) 0.6 10^3/uL (0.0-1.0); MONOCYTES % (AUTO) 8.6 %; NEUTROPHILS # (AUTO) 3.6 10^3/uL (1.5-6.6); NEUTROPHILS % (AUTO) 50.4 %; PLT - PLATELET COUNT 185 10^3/uL (130-450); RED BLOOD COUNT 4.73 10^6/uL (4.20-5.40); RED CELL DISTRIBUTION WIDTH 13.3 % (12.0-15.0); WHITE BLOOD COUNT 7.1 x10^3/uL (4.8-10.8)
[2020-07-21] MEDS ORDERED: HYDROcod/ACETAM 5/325 MG TABLET PO STA (19:27)
--- NOTE | 2020-07-21 19:28 | ED Physician Documentation ---
PD HPI CHEST PAIN - Stated complaint Stated Complaint: HBP/LT ARM PX - Chief complaint Chief Complaint: Cardiac - History obtained from History obtained from: Patient - Additional information Additional information: 79-year-old woman with history of arthritis developed acute left shoulder pain radiating down the arm about an hour and a half ago. She was just sitting at her computer playing a game when it happened. Pain is better now but not gone and does request something for it. There is no associated chest pain, trouble breathing, sweats, nausea, dizziness. Review of Systems Ten Systems: 10 systems reviewed and negative Constitutional: denies: Fever, Chills Ears: denies: Loss of hearing, Ear pain Nose: denies: Rhinorrhea / runny nose, Congestion Throat: denies: Sore throat Cardiac: denies: Chest pain / pressure, Palpitations Respiratory: denies: Dyspnea, Cough PD PAST MEDICAL HISTORY - Past Medical History Past Medical History: Yes Cardiovascular: High cholesterol Respiratory: Shortness of breath Neuro: Migraines Endocrine/Autoimmune: HyPOthyroidism GI: Diverticulitis VARYING EXCEPTIONALITIES TEACHER: None : Incontinence HEENT: Chronic vision loss, Chronic hearing loss Psych: None Musculoskeletal: Osteoarthritis, Osteoporosis, Chronic back pain Derm: Psoriasis - Past Surgical History Past Surgical History: Yes General: Cholecystectomy Ortho: Other /VARYING EXCEPTIONALITIES TEACHER: Tubal ligation Cardiovascular: AAA - Present Medications Home Medications: Ambulatory Orders Medication Instructions Recorded Confirmed Cetirizine [ZyrTEC] 1 tab PO DAILY 02/15/15 07/21/20 Ibandronate Sodium [Boniva] 150 mg PO DAILY 02/15/15 07/21/20 Levothyroxine [Synthroid] 1 tab PO DAILY 02/15/15 07/21/20 Simvastatin 1 tab PO DAILY 02/15/15 07/21/20 Budesonide/Formoterol Fumarate 10.2 gm IH BID PRN 10/04/18 07/21/20 [Symbicort 160-4.5 Mcg Inhaler] Calcium Carbonate 100 mg PO DAILY 10/04/18 07/21/20 Cyanocobalamin (Vitamin B-12) 1,000 mcg PO DAILY 10/04/18 07/21/20 [Vitamin B-12] Ustekinumab [Stelara] 45 mg SUBQ ONCE 10/04/18 10/04/18 HYDROcod/ACETAM 5/325 [[place] 5/325] 1 - 2 tab PO Q6H PRN #15 tablet 07/21/20 - Allergies Allergies/Adverse Reactions: Allergies Allergy/AdvReac Type Severity Reaction Status Date / Time erythromycin base Allergy Unknown Verified 10/04/18 19:25 - Social History Does the pt smoke?: No Smoking Status: Never smoker Does the pt drink ETOH?: Yes Does the pt have substance abuse?: No - Immunizations Immunizations are current?: Yes - POLST Patient has POLST: No PD ED PE NORMAL - Vitals Vital signs reviewed: Yes - General General: Alert and oriented X 3, No acute distress - HEENT HEENT: PERRL, EOMI - Neck Neck: Supple, no meningeal sign, No bony TTP - Cardiac Cardiac: RRR, No murmur - Respiratory Respiratory: No respiratory distress, Clear bilaterally - Abdomen Abdomen: Non tender - Extremities Extremities: No edema, No calf tenderness / cord, Other (Focal tenderness over the left glenohumeral joint, mild pain with range of motion but pretty good range of motion. Equal radial pulses at both wrists.) - Neuro Neuro: Alert and oriented X 3, Normal speech Results - Vitals Vitals: Vital Signs - 24 hr 07/21/20 07/21/20 07/21/20 18:50 19:21 20:46 Temperature 36 C L Heart Rate 71 71 72 Respiratory 16 29 H 24 Rate Blood Pressure 158/64 H 136/76 H 154/60 H O2 Saturation 95 98 95 Oxygen O2 Source Room air - EKG (time done) 1852 Rate: Rate (enter#) (72) Rhythm: NSR [place]: Normal Intervals: RBBB, Other (LAFB) QRS: LVH Ischemia: Normal ST segments - Labs Labs: Laboratory Tests 07/21/20 07/21/20 07/21/20 19:11 19:11 19:11 WBC 7.1 RBC 4.73 Hgb 15.5 Hct 47.1 H MCV 99.6 H MCH 32.8 H MCHC 32.9 RDW 13.3 Plt Count 185 MPV 11.5 H Neut # (Auto) 3.6 Lymph # (Auto) 2.7 [place] # (Auto) 0.6 Eos # (Auto) 0.2 Baso # (Auto) 0.0 Absolute Nucleated RBC 0.00 Nucleated RBC % 0.0 Sodium 139 Potassium 3.6 Chloride 102 Carbon Dioxide 28 Anion Gap 9.0 BUN 15 Creatinine 0.7 Estimated GFR (MDRD) 81 L Glucose 148 H Calcium 9.2 Total Bilirubin 0.8 AST 17 ALT 16 Alkaline Phosphatase 45 Troponin I High Sens 4.4 Total Protein 7.2 Albumin 3.9 Globulin 3.3 Albumin/Globulin Ratio 1.2 Lipase 39 PD MEDICAL DECISION MAKING - ED course ED course: 79-year-old woman seen today for shoulder pain. She was concern for an atypical ACS but there is no evidence of this objectively. X-ray does show some left shoulder DJD. Feeling better after hydrocodone. Departure - Departure Disposition: Home, Self Care Clinical Impression: Shoulder pain Qualifiers: Chronicity: acute Laterality: left Qualified Code(s): M25.512 - Pain in left shoulder Condition: Good Record reviewed to determine appropriate education?: Yes Instructions: ED Shoulder Pain UKO Prescriptions: HYDROcod/ACETAM 5/325 [[place] 5/325] 1 - 2 tab PO Q6H PRN #15 tablet PRN Reason: Pain Comments: Call your doctor to arrange a follow-up appointment, make the next available appointment. In the interim, return anytime if worse or if new symptoms develop. Discharge Date/Time: 07/21/20 21:01
[2020-07-21 19:32] LABS: ALBUMIN 3.9 g/dL (3.2-5.5); ALBUMIN/GLOBULIN RATIO 1.2 (1.0-2.2); BILIRUBIN,TOTAL 0.8 mg/dL (0.2-1.0); CALCIUM 9.2 mg/dL (8.5-10.3); CREATININE 0.7 mg/dL (0.4-1.0); POTASSIUM 3.6 mmol/L (3.5-5.0); TOTAL PROTEIN 7.2 g/dL (6.7-8.2)
--- NOTE | 2020-07-21 19:47 | XRAY Report ---
PROCEDURE: Chest 1 View X-Ray INDICATIONS: Chest pain TECHNIQUE: One view of the chest was acquired. COMPARISON: CXR 10/04/2018. FINDINGS: Surgical changes and devices: None. Lungs and pleura: No pleural effusions or pneumothorax. Lungs are clear. Mediastinum: Mediastinal contours appear normal. Heart size is normal. Bones and chest wall: No suspicious bony lesions. Overlying soft tissues appear unremarkable. IMPRESSION: No acute cardiopulmonary abnormality. Reviewed by: Jesus Alberto Padilla MD on 07/21/2020 7:46 PM PDT Approved by: Jesus Alberto Padilla MD on 07/21/2020 7:46 PM PDT Station ID: [id number]
--- NOTE | 2020-07-21 20:25 | XRAY Report ---
PROCEDURE: Shoulder 3 View LT INDICATIONS: shoulder pain TECHNIQUE: 3 views of the shoulder were acquired. COMPARISON: CXR also performed today, 10/04/2018. FINDINGS: Bones: No fractures or dislocations. No suspicious bony lesions. Visualized ribs appear intact. M ild degenerative change appreciated. Soft tissues: No suspicious soft tissue calcifications. IMPRESSION: Mild left shoulder DJD appreciated. Reviewed by: Jesus Alberto Padilla MD on 07/21/2020 8:24 PM PDT Approved by: Jesus Alberto Padilla MD on 07/21/2020 8:24 PM PDT Station ID: [id number]
[2020-07-21 20:47] VITALS: BP 154/60
== END 2020-07-21 21:01 | disposition home or self-care (01) ==
LOC: ED 18:45
DX: M25.512 Pain in left shoulder (principal); M19.012 Primary osteoarthritis, left shoulder; I45.2 Bifascicular block
CPT/HCPCS: 36415; 71045; 73030; 80053; 83690; 84484; 85025; 93005; 99284; A9270

== ENCOUNTER 2022-10-24 10:40 | Outpatient (CLI) | payer MEDICARE, OTHER ==
--- NOTE | 2022-10-24 17:33 | DEXA Report ---
PROCEDURE: Dexa Spine and/or Hip INDICATIONS: POST MENOPAUSAL. Lumbar spine inaccessible. History of left hip fracture. TECHNIQUE: Dual energy x-ray absorptiometry (DXA) was performed on a [employer] System. Regions measur ed are the left forearm and right hip. COMPARISON: 09/22/2017 FINDINGS: Right Femoral Neck: Bone Mineral Density 0.749 g/cm/cm, T score -2.1. Previously -1.7 Right Hip: Bone Mineral Density 0.867 g/cm/cm,T score -1.1. Previously -0.7 Left Forearm: Bone Mineral Density 0.658 g/cm/cm, T score -0.3. Previously -0.7 (T score greater or equal to -1.0: NORMAL) (T score from -1.1 to -2.4: OSTEOPENIA) (T score less than or equal to -2.5 to: OSTEOPOROSIS) Impression: By WHO criteria, this patient has low bone density (osteopenia). Bone mineral density is decreasing i n the right hip but slightly improved in the left forearm Patients with diagnosis of osteoporosis or osteopenia should have regular bone mineral density assess ment. For those eligible for Medicare, routine testing is allowed once every 2 years. Testing frequ ency can be increased for patients who have rapidly progressing disease or for those who are receivin g medical therapy to restore bone mass. Reviewed by: Francis Beal MD on 10/24/2022 4:32 PM FIDEL Approved by: Francis Beal MD on 10/24/2022 4:32 PM AKOSCAR Station ID: [id number]
== END 2022-10-24 10:41 | disposition home or self-care (01) ==
LOC: DI 10:40
PROVIDERS: ATTEND Internal Medicine
DX: N95.8 Other specified menopausal and perimenopausal disorders (principal); M85.88 Other specified disorders of bone density and structure, other site

== ENCOUNTER 2023-08-20 10:14 | Emergency (ER) | payer MEDICARE, OTHER ==
--- NOTE | 2023-08-20 11:19 | ED Physician Documentation ---
PD HPI HEADACHE - Stated complaint Stated Complaint: MERLOS - Chief complaint Chief Complaint: Neuro - History obtained from History obtained from: Patient, Family - Additional information Additional information: This is a ernie 83-year-old woman who presents with her and daughter for the evaluation of a new headache. She has a history of rheumatoid arthritis and takes Enbrel for same. Since yesterday she has had a spasm-like pain in the right gnosticism. It lasts very briefly, just a moment at a time and happens approximate 10 times per hour. It is quite severe when it happens but she is p ain-free in the interim. There is no effect on her vision. No radiation to the ear or hearing loss with it. She has a history of headaches but this is much different than any headache she is ever had before. She is not nauseous with it. No rash in that area. PD PAST MEDICAL HISTORY - Past Medical History Cardiovascular: High cholesterol Respiratory: Shortness of breath Neuro: Migraines Endocrine/Autoimmune: HyPOthyroidism GI: Diverticulitis OUTSIDE OPERATOR: None : Incontinence HEENT: Chronic vision loss, Chronic hearing loss Psych: None Musculoskeletal: Osteoarthritis, Osteoporosis, Chronic back pain Derm: Psoriasis - Past Surgical History Past Surgical History: Yes General: Cholecystectomy Ortho: Other /OUTSIDE OPERATOR: Tubal ligation Cardiovascular: AAA - Present Medications Home Medications: Ambulatory Orders Medication Instructions Recorded Confirmed Cetirizine [ZyrTEC] 1 tab PO DAILY 02/15/15 07/21/20 Ibandronate Sodium [Boniva] 150 mg PO DAILY 02/15/15 07/21/20 Levothyroxine [Synthroid] 1 tab PO DAILY 02/15/15 07/21/20 Simvastatin 1 tab PO DAILY 02/15/15 07/21/20 Budesonide/Formoterol Fumarate 10.2 gm IH BID PRN 10/04/18 07/21/20 [Symbicort 160-4.5 Mcg Inhaler] Calcium Carbonate 100 mg PO DAILY 10/04/18 07/21/20 Cyanocobalamin (Vitamin B-12) 1,000 mcg PO DAILY 10/04/18 07/21/20 [Vitamin B-12] Ustekinumab [Stelara] 45 mg SUBQ ONCE 10/04/18 10/04/18 HYDROcod/ACETAM 5/325 [[place] 5/325] 1 - 2 tab PO Q6H PRN #15 tablet 07/21/20 carBAMazepine [TEGretol] 100 mg PO BID #120 tablet 08/20/23 - Allergies Allergies/Adverse Reactions: Allergies Allergy/AdvReac Type Severity Reaction Status Date / Time erythromycin base Allergy Unknown Verified 08/20/23 10:26 - Social History Does the pt smoke?: No Smoking Status: Never smoker Does the pt drink ETOH?: Yes Does the pt have substance abuse?: No - Immunizations Immunizations are current?: Yes - POLST Patient has POLST: No PD ED PE NORMAL - Vitals Vital signs reviewed: Yes - General General: Alert and oriented X 3, No acute distress - HEENT HEENT: PERRL, EOMI, Other (She is tender over the right temporal artery. The TM is normal on that side. Cranial nerves are intact albeit I did not test cranial nerve I. No shingles rash in the area.) - Neck Neck: Supple, no meningeal sign, No bony TTP - Cardiac Cardiac: RRR, No murmur - Neuro Neuro: Alert and oriented X 3, community health nurse staff 2-12 intact, No motor deficit, No sensory deficit, Normal speech Eye Opening: Spontaneous Motor: Obeys Commands Verbal: Oriented GCS Score: 15 Results - Vitals Vitals: Vital Signs - 24 hr 08/20/23 10:24 Temperature 36.2 C L Heart Rate 86 Respiratory 16 Rate Blood Pressure 147/58 H O2 Saturation 97 Oxygen O2 Source Room air - Labs Labs: Laboratory Tests 08/20/23 08/20/23 08/20/23 11:25 11:25 11:25 WBC 7.5 RBC 4.65 Hgb 15.1 Hct 46.8 MCV 100.6 H MCH 32.5 H MCHC 32.3 RDW 13.7 Plt Count 195 MPV 11.1 H Neut # (Auto) 4.5 Lymph # (Auto) 2.1 [place] # (Auto) 0.7 Eos # (Auto) 0.2 Baso # (Auto) 0.0 Absolute Nucleated RBC 0.00 Nucleated RBC % 0.0 ESR 4 Sodium 141 Potassium 3.9 Chloride 106 Carbon Dioxide 30 Anion Gap 5.0 L BUN 13 Creatinine 0.7 Estimated GFR (MDRD) 80 L Glucose 110 H Calcium 9.7 Total Bilirubin 0.5 AST 16 ALT 14 Alkaline Phosphatase 45 C-Reactive Protein < 0.5 Total Protein 7.1 Albumin 4.2 Globulin 2.9 Albumin/Globulin Ratio 1.4 - Rads (name of study) CT of the head is unremarkable with the exception of concern for normal pressure hydrocephalus. Relevant Findings:: Final report received, EMP independent interpretation of test PD Medical Decision Making - ED course ED course: This is a ernie 83-year-old woman who presents with new onset headaches. Actually it is really more facial pain in the right temporal area. It is paroxysmal, very brief and shocklike. 1 concern would be for giant cell arteritis given her age. Alternatively, this paroxysmal facial pain with an electric shocklike sensation can certainly be consistent with trigeminal neuralgia. Her low normal inflammatory markers (ESR and CRP) would suggest against inflammatory process such as giant cell arteritis. Head CT did have some ventriculomegaly and this was discussed with patient and family. She does not have any symptoms of normal pressure hydrocephalus, her memory is good, she needs a cane to walk but it is because of bad knees, and she has does not have incontinence. Family tells me she is already been worked up at [facility] for potential normal pressure hydrocephalus, and they feel that she did not have that diagnosis. Otherwise the head CT was not showing any mass lesion or bleeding. At this point I think it is reasonable to start carbamazepine for potential trigeminal neuralgia pending follow-up. Departure - Departure Disposition: 01 Home, Self Care Clinical Impression: Facial pain Condition: Good Record reviewed to determine appropriate education?: Yes Instructions: ED Neuralgia Trigeminal Prescriptions: carBAMazepine [TEGretol] 100 mg PO BID #120 tablet Comments: It was a pleasure taking care of you today. I was concerned that she might have giant cell arteritis but your inflammatory markers (ESR and CRP) were normal. Your CAT scan was negative with the exception of the larger ventricles, but you tell me you have already had this worked up at [facility] and they did not feel you had this diagnosis nor do you have any of the symptoms of that. I think you probably have something called trigeminal neuralgia which fits your brief electric shock pain type. I am starting a medication for that called carbamazepine. I am starting it at the lowest dose and you can double it after a couple of days if it is not effective. Either way I do want you to follow-up with your primary care physician for further evaluation and treatment with consideration for MRI (which we cannot perform on Monday, but there is no yañez to that), and/or neurology referral. Return if worse. Forms: PCP List
[2023-08-20 11:32] LABS: BASOPHILS % (AUTO) 0.4 %; EOSINOPHILS # (AUTO) 0.2 10^3/uL (0.0-0.7); EOSINOPHILS % (AUTO) 2.4 %; HCT - HEMATOCRIT 46.8 % (37.0-47.0); HGB - HEMOGLOBIN 15.1 g/dL (12.0-16.0); LYMPHOCYTES # (AUTO) 2.1 10^3/uL (1.5-3.5); MEAN CORPUSCULAR HEMOGLOBIN 32.5 pg (27.0-31.0); MEAN CORPUSCULAR HGB CONC 32.3 g/dL (32.0-36.0); MEAN CORPUSCULAR VOLUME 100.6 fL (81.0-99.0); MEAN PLATELET VOLUME 11.1 fL (7.9-10.8); MONOCYTES # (AUTO) 0.7 10^3/uL (0.0-1.0); MONOCYTES % (AUTO) 9.1 %; NEUTROPHILS # (AUTO) 4.5 10^3/uL (1.5-6.6); NEUTROPHILS % (AUTO) 59.8 %; PLT - PLATELET COUNT 195 10^3/uL (130-450); RED BLOOD COUNT 4.65 10^6/uL (4.20-5.40); RED CELL DISTRIBUTION WIDTH 13.7 % (12.0-15.0); WHITE BLOOD COUNT 7.5 x10^3/uL (4.8-10.8)
[2023-08-20 11:46] LABS: ALBUMIN 4.2 g/dL (3.2-5.5); ALBUMIN/GLOBULIN RATIO 1.4 (1.0-2.2); ALKALINE PHOSPHATASE 45 IU/L (42-121); ALT ALANINE AMINOTRANSFERASE 14 IU/L (10-60); AST ASPARTATE AMINOTRANSFERASE 16 IU/L (10-42); BILIRUBIN,TOTAL 0.5 mg/dL (0.2-1.0); BUN - BLOOD UREA NITROGEN 13 mg/dL (6-20); CALCIUM 9.7 mg/dL (8.5-10.3); CARBON DIOXIDE - CO2 30 mmol/L (21-32); CHLORIDE 106 mmol/L (101-111); CREATININE 0.7 mg/dL (0.6-1.3); CRP - C-REACTIVE PROTEIN < 0.5 mg/dL (<0.5); GFR - MDRD 80 (>89); GLUCOSE 110 mg/dL (74-104); POTASSIUM 3.9 mmol/L (3.5-4.5); SODIUM 141 mmol/L (135-145); TOTAL PROTEIN 7.1 g/dL (6.4-8.9)
--- NOTE | 2023-08-20 11:49 | CT Report ---
PROCEDURE: Head WO INDICATIONS: headache TECHNIQUE: Noncontrast 4.5 mm thick angled axial sections acquired from the foramen magnum to the vertex. For r adiation dose reduction, the following was used: automated exposure control, adjustment of mA and/or kV according to patient size. COMPARISON: 02/15/2015 FINDINGS: Image quality: Excellent. CSF spaces: Basal cisterns are patent. No extra-axial fluid collections. Generalized prominence of the lateral ventricles can be seen, which is similar to 2015. Brain: No midline shift. No intracranial masses or hemorrhage. Montalvo-white matter interface is norm al. Skull and face: Calvarium and visualized facial bones are intact, without suspicious lesions. Sinuses: Visualized sinuses and mastoids are clear. IMPRESSION: No acute intracranial pathology. No intracranial hemorrhage is seen. The lateral ventricles are abnormally prominent and are more prominent than would be expected, given the degree of underlying sulcal atrophy. Please consider normal pressure hydrocephalus. Reviewed by: Michel Stovall MD on 08/20/2023 10:48 AM FIDEL Approved by: Michel Stovall MD on 08/20/2023 10:48 AM FIDEL Station ID: [id number]
[2023-08-20] MEDS: carBAMazepine 200 MG TABLET PO STA (12:15)
[2023-08-20 12:21] VITALS: BP 146/68; O2SAT 93
== END 2023-08-20 12:20 | disposition home or self-care (01) ==
LOC: ED 10:14
DX: R51.9 Headache, unspecified (principal); G93.89 Other specified disorders of brain
CPT/HCPCS: 36415; 70450; 80053; 85025; 85651; 86140; 99284; A9270